=== PATIENT | female | born 1960 | race Caucasian/White ===

== ENCOUNTER 2019-01-16 11:00 | Outpatient (CLI) | payer OTHER ==
--- NOTE | 2019-01-16 12:31 | MRI ---
MRI OF THE LEFT SHOULDER WITHOUT CONTRAST: INDICATION: Left shoulder pain. COMPARISON: None. FINDINGS: There is mild tendinosis of the supraspinatus. The biceps tendon is located. There is mild diffuse chondrosis of the glenohumeral joint. There is some intrasubstance degenerative-type signal involvin g the superior glenoid labrum and biceps anchor complex. No definite discrete tear is evident. Smal l osteophyte is seen off the posterior aspect of the glenoid. Here is mild AC joint osteoarthrosis. No muscular atrophy is evident. There is a type II acromion. There is slight lateral downsloping o f the acromion which may produce the symptoms of impingement. IMPRESSION: 1. Mild supraspinatus tendinosis without evidence of a full-thickness rotator cuff tear. 2. Some degenerative intrasubstance signal of the superior glenoid labrum and biceps anchor complex. 3. Mild glenohumeral osteoarthrosis. 4. Lateral downsloping of the acromion may produce the symptoms of impingement. POS: [facility]
== END 2019-01-16 11:01 | disposition home or self-care (01) ==
LOC: MRI 11:00
PROVIDERS: ATTEND Orthopaedic Surgery
DX: M25.312 Other instability, left shoulder (principal); M25.512 Pain in left shoulder; M19.012 Primary osteoarthritis, left shoulder; M75.82 Other shoulder lesions, left shoulder